=== PATIENT | male | born 1990 | race African-American/Black ===

== ENCOUNTER 2019-09-16 18:47 | Emergency (ER) | payer BC ==
[~2019-09-16] VITALS: Ht 177.8 cm; Wt 90.5 kg
[2019-09-16 21:35] LABS: BASOPHILS % (AUTO) 0.8 % (0.0-2.0); EOSINOPHILS % (AUTO) 0.7 % (1.0-6.0); HEMATOCRIT 41.3 % (41-53); HEMOGLOBIN 14.1 g/dL (13.5-17.5); LYMPHOCYTES # (AUTO) 2.1 K/uL (1.0-4.8); MEAN CORPUSCULAR HEMOGLOBIN 31.2 pg (26.0-34.0); MEAN CORPUSCULAR HGB CONC 34.1 G/dL (31.0-37.0); MEAN CORPUSCULAR VOLUME 92 fL (80-100); MONOCYTES # (AUTO) 0.4 K/uL (0.1-1.0); MONOCYTES % (AUTO) 7.5 % (2.0-9.0); NEUTROPHILS # (AUTO) 3.3 K/uL (1.8-7.7); PLATELET COUNT (AUTO) 206 K/uL (150-450); RED CELL DISTRIBUTION WIDTH 12.5 % (11.5-14.5)
[2019-09-16 21:39] LABS: ANION GAP 7 mmol/L (8-16); CALCIUM, TOTAL 9.2 mg/dL (8.8-10.5); CARBON DIOXIDE 29 mmol/L (22-29); CHLORIDE 102 mmol/L (98-107); GLOMERULAR FILTR. RATE CALC > 60 mL/min (>60); GLUCOSE,RANDOM 86 mg/dL (70-110); SODIUM SERUM 138 mmol/L (136-145); UREA NITROGEN, BLOOD 18 mg/dL (7-18)
[2019-09-16 21:54] LABS: ALANINE AMINOTRANSFERASE 20 U/L (12-78); ALBUMIN 4.2 g/dL (3.4-5.0); ALKALINE PHOSPHATASE 45 U/L (46-116); ASPARTATE AMINOTRANSFERASE 24 U/L (15-37); BILIRUBIN,TOTAL 0.7 mg/dL (0.1-1.0); TOTAL PROTEIN, SERUM 7.4 g/dL (6.4-8.2)
[2019-09-16 22:43] VITALS: BP 118/71
== END 2019-09-16 22:30 | disposition home or self-care (01) ==
LOC: EMS 18:47
DX: I49.8 Other specified cardiac arrhythmias (principal); R00.2 Palpitations
CPT/HCPCS: 83735; 93005

== ENCOUNTER 2019-12-10 13:28 | Emergency (ER) | payer BC ==
[~2019-12-10] VITALS: Ht 175.3 cm; Wt 77.3 kg
[2019-12-10 13:29] VITALS: BP 140/75
== END 2019-12-10 14:00 | disposition home or self-care (01) ==
LOC: EMS 13:36
DX: Z03.818 Encounter for observation for suspected exposure to other biological agents ruled out (principal)
CPT/HCPCS: 99283; U0003